=== PATIENT | female | born 1980 | race Caucasian/White ===

== ENCOUNTER → 2020-06-15 | Outpatient (CLI) | payer BC, OTHER | LOC: EXRD 10:50 | DX: R55 Syncope and collapse (principal) | CPT/HCPCS: 93880 ==

== ENCOUNTER → 2020-11-17 | Outpatient (CLI) | payer BC | LOC: KOH-I 10:30 | DX: R51.9 Headache, unspecified (principal) | CPT/HCPCS: 70450 ==

== ENCOUNTER 2021-01-06 09:56 | Emergency (ER) | payer BC ==
[2021-01-06 11:28] LABS: HEMOGLOBIN 13.3 gm/dl (12.3-15.3); RED BLOOD COUNT 4.68 M/UL (4.00-5.10); WHITE BLOOD COUNT 9.3 K/UL (4.5-11.0)
[2021-01-06 11:45] LABS: BUN/CREATININE RATIO 18 (0-10)
[2021-01-06] MEDS ORDERED: ASPIRIN CHEWABL81 MG PO (13:52)
== END 2021-01-06 14:30 | disposition home or self-care (01) ==
LOC: ER1 09:56
PROVIDERS: Emergency Medicine
DX: R55 Syncope and collapse (principal); R42 Dizziness and giddiness; E78.5 Hyperlipidemia, unspecified; N18.9 Chronic kidney disease, unspecified; I25.10 Atherosclerotic heart disease of native coronary artery without angina pectoris; Z86.16 Personal history of COVID-19; Z20.822 Contact with and (suspected) exposure to COVID-19
CPT/HCPCS: 70450; 71045; 80053; 82550; 82553; 83874; 84484; 84703; 85025; 85379; 93005; 99284; J7030; U0002